=== PATIENT | female | born 1950 | race American Indian/Alaskan Native ===

== ENCOUNTER 2016-06-04 05:57 | Day surgery (SDC) | payer MEDICARE ==
[2016-06-04] MEDS ORDERED: FLAGYL 500 MG/100 ML 500 MG/100 ML BAG IV NR (06:00)
[2016-06-04] MEDS ORDERED: NACL BACTERIOSTATIC INFILTRATI ONE (06:46)
[2016-06-04] MEDS ORDERED: NACL 0.9% 1000 ML 1,000 ML IV SCH (07:00)
[2016-06-04] MEDS ORDERED: PEPCID PO NR (07:00)
[2016-06-04] MEDS ORDERED: VERSED IV NR (07:00)
[2016-06-04] MEDS ORDERED: SUBLIMAZE ONE (07:07)
[2016-06-04] MEDS ORDERED: DIPRIVAN 10 MG/ML IV ONE (07:07)
--- NOTE | 2016-06-04 07:18 | Anesthesia Day of Surgery ---
Anesthesia Day of Surgery - Day of Surgery Patient Examined: Yes Patient H&P Reviewed: Yes Patient is NPO: Yes Beta Blockers: Yes
--- NOTE | 2016-06-04 07:18 | Anesthesia Consultation ---
Anesthesia Consult and Med Hx Date of service: 06/04/16 - Airway Anesthetic Teeth Evaluation: Poor ROM Head & Neck: Adequate Mental/Hyoid Distance: Adequate Mallampati Class: Class II Intubation Access Assessment: Probably Good - Pulmonary Exam CTA: Yes - Cardiac Exam Cardiac Exam: RRR - Pre-Operative Health Status ASA Pre-Surgery Classification: ASA3 Proposed Anesthetic Plan: General - Pulmonary Hx Smoking: Yes Hx Asthma: No Hx Sleep Apnea: Yes (not on CPAP) - Cardiovascular System Hx Hypertension: Yes Hx Coronary Artery Disease: Yes (EF 55%) Hx Cardia Arrhythmia: Yes Hx Pacemaker: Yes - Central Nervous System Hx Seizures: No CVA: No Hx Psychiatric Problems: Yes (DEPRESSION) - Gastrointestinal Hx Gastroesophageal Reflux Disease: Yes (CONTROLLED WITH MEDS) - Endocrine Hx Renal Disease: Yes (CKD) Hx Insulin Dependent Diabetes: Yes (Takes insulin to match BG. Last dose 1 month ago, BG 118 today.) Hx Thyroid Disease: No - Hematic Hx Anemia: Yes - Other Systems Hx Alcohol Use: No Hx Substance Use: No Hx Cancer: No Hx Obesity: Yes (s/p gastric bypass 2003; current BMI= 37)
[2016-06-04] MEDS ORDERED: MORPHINE ONE ×3 (07:19→09:24)
[2016-06-04] MEDS ORDERED: LOPRESSOR PO NR (07:20)
[2016-06-04] MEDS ORDERED: PERCOCET 5/325 PO PRN (07:22)
[2016-06-04] MEDS ORDERED: WATER FOR IRRIG STERILE IR ONE ×3 (07:31→07:32)
[2016-06-04] MEDS ORDERED: OMNIPAQUE (300 MG) IV ONE (07:32)
[2016-06-04 07:48] LABS: Hematocrit 24.5 % (30.3-42.9); Hemoglobin 7.3 gm/dl (10.1-14.3)
[2016-06-04] MEDS ORDERED: NACL 0.9% 100 ML ONE (08:34)
[2016-06-04] MEDS ORDERED: NEO SYNEPHRINE ONE (08:34)
[2016-06-04] MEDS ORDERED: DECADRON ONE (08:47)
[2016-06-04] MEDS ORDERED: ZOFRAN ONE (08:47)
[2016-06-04] MEDS ORDERED: NACL P/F VIAL (10 ML) 10 ML ONE (08:56)
[2016-06-04] MEDS ORDERED: XYLOCAINE MPF 2% ONE ×2 (08:56)
--- NOTE | 2016-06-04 09:28 | Short Stay Summary ---
Short Stay Documentation Date of service: 06/04/16 - History H&P: obtained from office - Allergies and Medications Current Medications: Allergies Sulfa (Sulfonamide Antibiotics) Allergy (Verified 08/16/15 09:14) Hives hydromorphone HCl [From Dilaudid] Adverse Reaction (Verified 02/13/16 09:47) Unknown Home Medications Medication Instructions Recorded Confirmed Last Taken Type Atorvastatin (Nf) [Lipitor (Nf)] 20 mg PO DAILY 04/08/13 06/04/16 06/03/16 History Cinacalcet [Sensipar] 30 mg PO DAILY 04/08/13 06/04/16 06/03/16 History Insulin Aspart [NovoLOG 100 1 - 100 units SQ AC PRN 04/08/13 06/01/16 1 Month Ago History UNITS/ML VIAL] Multivitamin [Multi-Vitamin Daily] 1 each PO DAILY 04/08/13 06/04/16 1 Year Ago History Cyclobenzaprine HCl [Flexeril 5 MG 5 mg PO DAILY 02/02/15 06/04/16 1 Month Ago History TAB] ALPRAZolam [Xanax TAB] 1 mg PO DAILY tablet 08/22/15 06/04/16 06/02/16 Rx HYDROcodone/APAP 5-325 [[place] 1 each PO Q6HR PRN #60 tablet 08/22/15 06/01/16 22:00 Rx 5-325 mg TAB] Nadolol [Corgard] 40 mg PO DAILY tablet 08/22/15 06/04/16 06/03/16 Rx Pantoprazole [Protonix TAB] 40 mg PO DAILY tablet 08/22/15 06/04/16 06/03/16 Rx amLODIPine [Norvasc] 5 mg PO DAILY tablet 08/22/15 06/01/16 12/06/15 Rx Cefuroxime [Ceftin] 250 mg PO Q12H 06/01/16 06/04/16 06/03/16 History Clopidogrel Bisulfate [Plavix] 75 mg PO DAILY 06/01/16 06/01/16 05/29/16 History HYDROcodone/APAP 10-325 [[place] 1 each PO Q6HR PRN 06/01/16 06/04/16 06/02/16 History 10/325] Mirabegron [Myrbetriq] 25 mg PO QDAY 06/01/16 06/04/16 06/03/16 History Nitrofurantoin Macrocrystal 25 mg PO DAILY 06/01/16 06/04/16 06/03/16 History [Nitrofurantoin] Furosemide [Lasix] 20 mg PO QDAY 06/04/16 06/04/16 2 Months Ago History Insulin Detemir [Levemir] 10 units SQ PRN PRN 06/04/16 06/04/16 1 Week Ago History Sucralfate [Carafate] 1 gm PO BID 06/04/16 06/04/16 06/03/16 History Urocit-K 15 10 meq PO BID 06/04/16 06/04/16 06/03/16 History Active Medications Famotidine (Pepcid) 20 mg PO PREOP NR Stop: 06/04/16 23:59 Last Admin: 06/04/16 07:22 Dose: 20 mg Metronidazole (Flagyl 500 Mg/100 Ml) 500 mg in 100 mls @ 0 mls/hr IV PREOP NR PRN Reason: Protocol Stop: 06/04/16 23:59 Sodium Chloride (Nacl 0.9% 1000 Ml) 1,000 mls @ 100 mls/hr IV DIRECT MARVIN Last Admin: 06/04/16 07:30 Dose: 100 mls/hr Metoprolol Tartrate (Lopressor) 25 mg PO ONCE NR Stop: 06/04/16 23:59 Last Admin: 06/04/16 07:40 Dose: 25 mg Midazolam HCl (Versed) 2 mg IV PREOP NR Stop: 06/04/16 23:59 Last Admin: 06/04/16 07:57 Dose: 2 mg Morphine Sulfate (Morphine) 2 mg IV Q10MIN PRN PRN Reason: Pain, Moderate (4-6) Stop: 06/04/16 16:00 Oxycodone/Acetaminophen (Percocet 5/325) 1 tab PO ONCE PRN PRN Reason: Pain, Moderate (4-6) Stop: 06/04/16 16:00 - Brief post op/procedure progress note Date of procedure: 06/04/16 Pre-op diagnosis: bilat hydro, bilat stones (on plavix) Procedure: cysto, bilat stent exchange(6x24F), rt ureteroscopy Anesthesia: GETA Surgeon: SUDHA QUINTERO Pathology: none Condition: stable - Hospital course Hospital course: norco, doxycycline, post op info on chart - Disposition Condition at discharge: Stable Disposition: DISCHARGED TO HOME OR SELFCARE Short Stay Discharge Plan Follow up with: NAYELI CORDERO MD [Primary Care Provider] - 7 Days
[2016-06-04] MEDS: MORPHINE IV PRN ×3 (09:38→10:10)
[2016-06-04] MEDS ORDERED: TORADOL IV PRN (10:31)
--- NOTE | 2016-06-04 10:39 | Post Anesthesia Evaluation ---
- Post Anesthesia Evaluation Patient Participated: Yes Airway Patent: Yes Stable Respiratory Function: Yes Nausea/Vomiting: No Temp > 96.8F: Yes Pain Manageable: Yes Adequeate Hydration: Yes Anesthesia Complications: No
[2016-06-04] MEDS ORDERED: NORMODYNE IV PRN ×2 (10:57→11:13)
[2016-06-04 12:03] VITALS: BP 136/65
--- NOTE | 2016-06-04 20:56 | Admit Criteria Form ---
Admission Criteria Documentation: AMBULATORY SURGERY EXCEPTION CRITERIA Ambulatory Surgery Exception Criteria ( Place 'X' for any and all applicable criteria): Surgery or procedure performed on ambulatory basis may require inpatient stay for[A] ANY ONE of the following(1)(2)(3)(4)(5)(6)(7)(8)(9): [X] I. A preoperative situation, condition, or finding that warrants inpatient stay as indicated by ANY ONE of the following: [] a) Inpatient care needed because of severity of a disease or condition rather than the surgery (eg, severe cardiac or respiratory disease, severe infection) (15) (16 ) (17) (18) [] b) Emergent procedure (eg, angioplasty for acute ischemia)(19) [] c) Complex surgical approach or situation as indicated by ANY ONE of the following(3): [] i) Open approach needed instead of usual endoscopic, transcatheter, or other less invasive procedure [] ii) Difficult approach because of previous operation [] iii) Airway monitoring required after open neck procedures(20)(21) [] iv) Large mass requiring unusually extensive dissection [] v) Additional complicating feature requiring inpatient care (eg, drain management)(22(23): [X] d) Major surgery in a pt with high anesthetic risk as indicated by ANY ONE of the following (2)(3)(5)(7)(8): [X] i) ASA risk class III or higher (severe systemic disease impairing function) [D] [] ii) Advanced age (eg, older than 85 years)(14)(24) [] iii) Symptomatic heart failure(25) [] iv) Symptomatic asthma or COPD(8)(21) [] v) Morbid obesity with hemodynamic or respiratory problems(20)( 21)(26)(27) [] vi) Obstructive sleep apnea(20)(21) [] vii) Former premature infants who are younger than 60 weeks [] viii) High risk for severe postoperative abnormalities (eg, severe postoperative hypocalcemia after parathyroidectomy for severe hyperparathyroidism)(27)( 28) [] ix) Unstable angina(25) [] e) Drug-related risk requiring inpatient stay as indicated by ANY ONE of the following(5)(10)(14)(32)(33) [] i) Procedure requires discontinuing drugs or other therapy (eg , antiarrhythmic medication, antiseizure medication), which necessitates inpatient observation or treatment.(18)(31) [] ii) Major surgery and high risk drug use as indicated by ANY ONE of the following: [] 1) Active abuse of cocaine or similar drug [] 2) Monoamine oxidase inhibitor use [] 3) Other drug identified as posing risk [] f) Inadequate outpatient care situation as indicated by ANY ONE of the following(5)(10)(14)(32)(33) [] i) Patient lives remote from medical facility and procedure has urgent complication potential, and temporary nearby residence cannot be arranged [] ii) Patient will have postprocedure incapacitation and inadequate assistance at home, or alternative level of care cannot be arranged. [] iii) Patient will have long general anesthesia or procedure side effect resolution time, and competent person to stay with patient on first postoperative night at home or alternative level of care cannot be arranged. []iv) Other inadequate outpatient situation that cannot be handled by other means [] II. A perioperative event, condition, or finding that warrants inpatient stay as indicated by ANY ONE of the following (1)(2)(3): [] a) Inadequate physiologic recovery: cardiovascular, respiratory, or hemodynamic status not normal or near preoperative baseline(18) [] b) Hemodynamic instability [] c) Patient not alert with near normal or baseline mental status [] d) Temperature not normal or as expected and not appropriate for outpatient treatment of condition [] e) Ambulatory or appropriate activity level status not yet achieved post procedure [E](34)(35)(36) [] f) Operative site not appropriate (eg, unexpected or excessive drainage or bleeding) [] g) Postoperative effects not resolved or adequately managed (eg, significant pain or vomiting not appropriate for outpatient or next level of care)(10)(12) [] h) Complicating features requiring inpatient care as indicated by ANY ONE of the following(37): [] i) Severe complications of procedure (eg, bowel injury, airway compromise, vascular injury,severe hemorrhage) [] ii) Extensive (eg, dissection far beyond usual scope of procedure ) or prolonged (eg, 120 minutes beyond usual) surgery needed requiring inpatient postoperative care [] iii) Conversion to an open or complex procedure that requires inpatient care (eg, open vs laparoscopic cholecystectomy, abdominal vs vaginal hysterectomy)(38) [] iv) Comorbid condition or test result identified during or post procedure that requires inpatient care (7) [] v) Malignant hyperthermia(30) [] vi) Other complicating feature requiring inpatient care(22)(23) Inpatient stay may be needed until ALL of the following are present (1)(2)(3)(4) (5)(6)(10)(14)(33)(40): []a) Physiologic recovery: cardiovascular, respiratory, and hemodynamic status normal or near preoperative baseline []b) Hemodynamic stability []c) Patient alert, with near normal or baseline mental status []d) Temperature appropriate: patient afebrile or temperature appropriate for outpt treatment of condition []e) Activity level appropriate: ambulatory or appropriate activity level post procedure []f) Operative site appropriate as indicated by ALL of the following: []i) Site dry or with expected drainage []ii) Any blood noted is as expected for procedure. []g) Postoperative effects resolved or managed as indicated by ALL of the following: []i) Pain management appropriate for outpatient (or next level of) care(10) []ii) Minimal nausea and vomiting: if present, successfully treated with oral medication(12) []iii) Headache, dizziness, or drowsiness (if present) are mild. []h) Voiding status acceptable as indicated by ANY ONE of the following: []i) Voiding spontaneously []ii) No voiding but instructions given for follow-up in 6 to 8 hours []iii) Urinary catheter in place, and instructions given for follow-up []i) Complicating features requiring inpatient care manageable at a lower level of care(37) []j) Comorbid conditions manageable at a lower level of care(37) The original [employer] content created by [employer] has been revised. The portions of the content which have been revised are identified through the use of italic text or in bold, and [facility] [employer] has neither reviewed nor approved the modified material. All other unmodified content is copyright [employer]. Please see references footnoted in the original [employer] edition 2016 Admission Criteria Met: Yes
--- NOTE | 2016-06-04 22:54 | Operative Report ---
PREOPERATIVE DIAGNOSES: Bilateral hydronephrosis, bilateral kidney stones. POSTOPERATIVE DIAGNOSES: Bilateral hydronephrosis, bilateral kidney stones. SECONDARY DIAGNOSES: Increased body mass index, status post gastric bypass in 2003; diabetes; heart disease, on anticoagulant therapy. PROCEDURE: Cystoscopy, bilateral stent exchange (left side complicated), right ureteroscopy, double-J stent placement bilaterally (6 [place] 24 cm with a short internal string). SURGEON: Shalom Oneill M.D. ANESTHESIA: General. ANESTHESIOLOGIST: Tawanda Magallanes MD ESTIMATED BLOOD LOSS: Minimal. FLUIDS: Crystalloid. COMPLICATIONS: No complications. INDICATION: This 65-year-old female known to our service for several years with long history of kidney stones due to a gastric bypass surgery. She has been on Urocit-K. She continues to have stones and infections. We are trying to minimize infections at this point by leaving indwelling stents and changing them intermittently as well as removing stones as needed. She presents now for stent exchange and revaluation. DESCRIPTION OF PROCEDURE: The patient was taken to the operative suite, placed in a supine position. After adequate general anesthesia, placed in a dorsal lithotomy position, prepped and draped in a sterile fashion. Pancystourethroscopy was performed with a 22 [place] Storz cystoscope. No bladder pathology. Bilateral stents could be appreciated from the ureteral orifice, appeared to have calcifications in the right ureter, therefore it was targeted for further evaluation. Attempt to remove the left stent for exchange was difficult. It was difficult to pass a 0.035 Glidewire after multiple attempts and using a pusher for assistance, therefore, I used a 0.025 Glidewire. I was able to exchange, insert the wire under fluoroscopic guidance. Multiple attempts to insert the 0.035 alongside the stent and through the stent were unsuccessful. A 0.025 wire was placed in the collecting system and a 6-[place] 24 cm double-J stent with a short internal string was inserted. Adequate positioning was confirmed under fluoroscopy. Next, attention was taken to the right side. It was easier to place the wire on the side, removed the stent due to possible calcification. Ureteroscopy up to the renal pelvis was performed. There was some small debris that could be appreciated that was washed out. The patient started to have some bleeding from the left ureter as well as the right ureter. Therefore, at this point, I just removed the debris, put up a 6-[place] 24 double-J stent, observed for a few minutes, did not appear to be very active and at that point, we completed the procedure. Her bladder was drained. She was extubated and taken to recovery room. She will go home on [place], doxycycline. This procedure was done under anticoagulant therapy, and therefore a more aggressive approach was not taken. PLAN: We will further evaluate the left ureter with possible ureteroscopy at the next setting. JOB# [id number] [facility]IL[facility]
--- NOTE | 2016-06-05 09:03 | XRay Report ---
AP ABDOMEN: HISTORY: Calculus of kidney. FINDINGS: Multiple AP fluoroscopic images of the abdomen were obtained during bilateral ureteral stent exchange. There is no obvious nephrolithiasis on this limited exam. The bowel gas pattern is normal. Previous ventral wall hernia repair changes are noted. The bilateral ureteral stents appear in good position on the final image. IMPRESSION: Bilateral ureteral stent exchange. No acute process in the abdomen.
== END 2016-06-04 12:30 | disposition home or self-care (01) ==
LOC: OR 05:57
PROVIDERS: ATTEND Urology
DX: N13.2 Hydronephrosis with renal and ureteral calculous obstruction (principal); E11.22 Type 2 diabetes mellitus with diabetic chronic kidney disease; I12.9 Hypertensive chronic kidney disease with stage 1 through stage 4 chronic kidney disease, or unspecified chronic kidney disease; N18.9 Chronic kidney disease, unspecified; F32.9 Major depressive disorder, single episode, unspecified; I25.10 Atherosclerotic heart disease of native coronary artery without angina pectoris; K21.9 Gastro-esophageal reflux disease without esophagitis; D64.9 Anemia, unspecified; E66.9 Obesity, unspecified; Z68.37 Body mass index [BMI] 37.0-37.9, adult; Z79.4 Long term (current) use of insulin; Z87.891 Personal history of nicotine dependence; Z95.0 Presence of cardiac pacemaker; Z98.84 Bariatric surgery status; Z79.01 Long term (current) use of anticoagulants
CPT/HCPCS: 36415; 52332; 74000; 82962; 85014; 85018; A4217; J1100; J1885; J2250; J2270; J2370; J2405; J2704; J7030; C1758; C1769; C2617; J3010

== ENCOUNTER 2016-10-10 11:15 | Day surgery (SDC) | payer MEDICARE ==
[~2016-10-10 11:15] MED LIST: FLAGYL 500 MG/100 ML 500 MG/100 ML BAG IV SCH; PERCOCET 5/325 PO PRN; VERSED IV NR; ZOFRAN IV PRN
[2016-10-10] MEDS ORDERED: PEPCID PO NR (12:00)
[2016-10-10] MEDS ORDERED: NACL 0.9% 1000 ML 1,000 ML IV SCH (12:00)
--- NOTE | 2016-10-10 12:13 | Anesthesia Day of Surgery ---
Anesthesia Day of Surgery - Day of Surgery Patient Examined: Yes Patient H&P Reviewed: Yes Patient is NPO: Yes
--- NOTE | 2016-10-10 12:22 | Anesthesia Consultation ---
Anesthesia Consult and Med Hx Date of service: 10/10/16 - Airway Anesthetic Teeth Evaluation: Dentures ROM Head & Neck: Adequate Mental/Hyoid Distance: Adequate Mallampati Class: Class II Intubation Access Assessment: Probably Good - Pulmonary Exam CTA: Yes - Cardiac Exam Cardiac Exam: RRR - Pre-Operative Health Status ASA Pre-Surgery Classification: ASA3 Proposed Anesthetic Plan: General - Pulmonary Hx Smoking: Yes (QUIT 40 YRS AGO) Hx Sleep Apnea: Yes (NOT ON CPAP) - Cardiovascular System Hx Hypertension: Yes (ON BETA MONA, EF 55-60) Hx Cardia Arrhythmia: Yes (PAROXYSMAL AFIB) Hx Pacemaker: Yes - Central Nervous System Hx Seizures: No CVA: No Hx Psychiatric Problems: Yes (DEPRESSION) - Gastrointestinal Hx Gastroesophageal Reflux Disease: Yes (CONTROLLED WITH MEDS) - Endocrine Hx Renal Disease: Yes (CKD) Hx Insulin Dependent Diabetes: Yes Hx Thyroid Disease: No - Hematic Hx Anemia: Yes - Other Systems Hx Alcohol Use: No Hx Substance Use: No Hx Cancer: No Hx Obesity: Yes (s/p gastric bypass 2003) - Additional Comments Anesthesia Medical History Comments: RIGHT ARM DVT IN 2003, ON PLAVIX, OFF FOR 1 WEEK
[2016-10-10] MEDS ORDERED: XYLOCAINE MPF 2% ONE (12:43)
[2016-10-10] MEDS ORDERED: DIPRIVAN 10 MG/ML IV ONE (12:43)
[2016-10-10] MEDS ORDERED: SUBLIMAZE ONE (12:43)
[2016-10-10] MEDS ORDERED: DECADRON ONE (12:45)
[2016-10-10] MEDS ORDERED: ZOFRAN ONE (12:45)
[2016-10-10 13:00] LABS: Hematocrit 29.1 % (30.3-42.9)
[2016-10-10] MEDS ORDERED: WATER FOR IRRIG STERILE IR ONE (13:43)
[2016-10-10] MEDS ORDERED: OMNIPAQUE 300 MG/50 ML (CATH LAB) IV ONE (13:48)
--- NOTE | 2016-10-10 14:34 | Short Stay Summary ---
Short Stay Documentation Date of service: 10/10/16 - History H&P: obtained from office - Allergies and Medications Current Medications: Allergies Sulfa (Sulfonamide Antibiotics) Allergy (Verified 08/16/15 09:14) Hives hydromorphone HCl [From Dilaudid] Adverse Reaction (Verified 02/13/16 09:47) Unknown Home Medications Medication Instructions Recorded Confirmed Last Taken Type Atorvastatin (Nf) [Lipitor (Nf)] 20 mg PO DAILY 04/08/13 10/05/16 06/03/16 History Cinacalcet [Sensipar] 30 mg PO DAILY 04/08/13 10/05/16 06/03/16 History Insulin Aspart [NovoLOG 100 1 - 100 units SQ AC PRN 04/08/13 10/05/16 1 Month Ago History UNITS/ML VIAL] Multivitamin [Multi-Vitamin Daily] 1 each PO DAILY 04/08/13 10/05/16 1 Year Ago History Cyclobenzaprine HCl [Flexeril 5 MG 5 mg PO DAILY 02/02/15 10/05/16 1 Month Ago History TAB] ALPRAZolam [Xanax TAB] 1 mg PO DAILY tablet 08/22/15 10/05/16 06/02/16 Rx HYDROcodone/APAP 5-325 [[place] 1 each PO Q6HR PRN #60 tablet 08/22/15 10/05/16 22:00 Rx 5-325 mg TAB] Nadolol [Corgard] 40 mg PO DAILY tablet 08/22/15 10/05/16 06/03/16 Rx Pantoprazole [Protonix TAB] 40 mg PO DAILY tablet 08/22/15 10/05/16 06/03/16 Rx amLODIPine [Norvasc] 5 mg PO DAILY tablet 08/22/15 10/05/16 12/06/15 Rx Cefuroxime [Ceftin] 250 mg PO Q12H 06/01/16 10/05/16 06/03/16 History Clopidogrel Bisulfate [Plavix] 75 mg PO DAILY 06/01/16 10/05/16 08/14/16 History HYDROcodone/APAP 10-325 [[place] 1 each PO Q6HR PRN 06/01/16 10/05/16 06/02/16 History 10/325] Mirabegron [Myrbetriq] 25 mg PO QDAY 06/01/16 10/05/16 06/03/16 History Nitrofurantoin Macrocrystal 25 mg PO DAILY 06/01/16 10/05/16 06/03/16 History [Nitrofurantoin] Furosemide [Lasix] 20 mg PO QDAY 06/04/16 10/05/16 2 Months Ago History Insulin Detemir [Levemir] 10 units SQ PRN PRN 06/04/16 10/05/16 1 Week Ago History Sucralfate [Carafate] 1 gm PO BID 06/04/16 10/05/16 06/03/16 History Urocit-K 15 10 meq PO BID 06/04/16 10/05/16 06/03/16 History Active Medications Famotidine (Pepcid) 20 mg PO PREOP NR Stop: 10/10/16 23:00 Last Admin: 10/10/16 13:13 Dose: 20 mg Metronidazole (Flagyl 500 Mg/100 Ml) 500 mg in 100 mls @ 100 mls/hr IV PREOP MARVIN Stop: 10/10/16 23:59 Sodium Chloride (Nacl 0.9% 1000 Ml) 1,000 mls @ 75 mls/hr IV DIRECT MARVIN Last Admin: 10/10/16 13:13 Dose: 75 mls/hr Midazolam HCl (Versed) 2 mg IV PREOP NR Stop: 10/10/16 23:59 Last Admin: 10/10/16 13:15 Dose: 2 mg Morphine Sulfate (Morphine) 2 mg IV Q10MIN PRN PRN Reason: Pain, Moderate (4-6) Stop: 10/13/16 08:59 - Brief post op/procedure progress note Date of procedure: 10/10/16 Pre-op diagnosis: bilat hydro Post-op diagnosis: other (bilat ureteral stones) Procedure: cysto, rpg, bilat ureteroscopy, holium laser, basket , stone extraction (left), bilat stent exchant (6x24) Anesthesia: LUCEROA Surgeon: SUDHA QUINTERO Estimated blood loss: minimal Pathology: none Condition: stable - Hospital course Hospital course: PT HAS MACROBID & PERCOCET - Disposition Condition at discharge: Stable Disposition: DC-01 TO HOME OR SELFCARE Short Stay Discharge Plan Follow up with: NAYELI CORDERO MD [Primary Care Provider] - 7 Days
[2016-10-10] MEDS: MORPHINE IV PRN ×3 (14:54→15:57)
--- NOTE | 2016-10-10 15:02 | Post Anesthesia Evaluation ---
- Post Anesthesia Evaluation Patient Participated: Yes Airway Patent: Yes Stable Respiratory Function: Yes Nausea/Vomiting: No Temp > 96.8F: Yes Pain Manageable: Yes Adequeate Hydration: Yes Anesthesia Complications: No Block Receding Appropriately: Not Applicable Patient on Ventilator: No
[2016-10-10] MEDS ORDERED: MORPHINE IV PRN (15:54)
[2016-10-10] MEDS ORDERED: PERCOCET 5/325 PO ONE (16:39)
[2016-10-10 17:36] VITALS: BP 155/79
--- NOTE | 2016-10-10 19:33 | Operative Report ---
PREOPERATIVE DIAGNOSIS: Bilateral hydronephrosis, status post double-J stent placement. POSTOPERATIVE DIAGNOSES: 1. Bilateral hydronephrosis, status post double-J stent placement. 2. Bilateral ureteral stones. PROCEDURES: Cystoscopy, bilateral retrograde pyelograms, bilateral rigid ureteroscopy, holmium laser lithotripsy, left basket stone extraction, left double-J stent exchange bilaterally (6 [place] 24 cm). SURGEON: Shalom Oneill MD. ANESTHESIA: General. ANESTHESIOLOGIST: Lizeth Larkin MD. ESTIMATED BLOOD LOSS: Minimal. FLUIDS: Crystalloid. COMPLICATIONS: No complications. INDICATIONS: This patient is a 65-year-old female known to our service for urolithiasis. She has had chronic stones and strictures requiring chronic indwelling stents. She presents now for exchange. She has also had intestinal bypass in the remote past that puts her at risk for stones. She has been on Urocit-K therapy and has minimized her stone formation. However, anytime she gets an obstruction, she becomes septic. She received cardiac clearance from Dr. Levi Latham. DESCRIPTION OF PROCEDURE: The patient was taken to the operative suite, placed in a supine position. After adequate general anesthesia, placed in a dorsal lithotomy position, prepped and draped in a sterile fashion. Pancystourethroscopy was performed with 22 [place] Storz cystoscope. No tumors or stones. Both ureteral orifices in normal position with stents in place. [employer] film revealed stents in good position ____, a 0.035 Glidewire was placed. Stent was pulled out. Retrograde pyelogram revealed some filling defects in the distal to mid ureter. Ureteroscopy identified several stones on the left side. Using a 200 micron fiber holmium laser lithotripsy was performed starting at 4 gotti going up to 6 gotti. Adequate fragmentation could be appreciated. Basket stone extraction was used. The small fragments were extracted, but not large enough to be sent for analysis. A 6-[place] 24 cm double-J stent was placed on the left side. Similar procedure was performed on the right. Again when we shot the retrograde we saw some debris but ureteroscopy appeared to be clot and small fragments. A 6-[place] 24 cm double-J stent was exchanged. Bladder was drained. The patient was extubated and taken to recovery room. She has Macrobid and Percocet 10 mg. She will follow up in the office. JOB# [id number] [facility]
--- NOTE | 2016-10-12 11:38 | Fluoroscopy Report ---
FLUOROSCOPY RETROGRADE UROGRAPHY History: Ureteral stones, hydronephrosis. Findings: Fluoroscopy was provided by radiology during retrograde urography by urology. 13 fluoroscopic images were captured. The images demonstrate bilateral ureteral stent exchange. Bilateral ureteroscopy was also performed with stone basket extraction in both ureters. Please correlate with the procedural report by Dr. Oneill.
== END 2016-10-10 17:00 | disposition home or self-care (01) ==
LOC: OR 11:15
PROVIDERS: ATTEND Urology
DX: N13.2 Hydronephrosis with renal and ureteral calculous obstruction (principal); E11.22 Type 2 diabetes mellitus with diabetic chronic kidney disease; I12.9 Hypertensive chronic kidney disease with stage 1 through stage 4 chronic kidney disease, or unspecified chronic kidney disease; I48.0 Paroxysmal atrial fibrillation; N18.9 Chronic kidney disease, unspecified; D64.9 Anemia, unspecified; F32.9 Major depressive disorder, single episode, unspecified; K21.9 Gastro-esophageal reflux disease without esophagitis; E66.9 Obesity, unspecified; Z88.2 Allergy status to sulfonamides; Z88.8 Allergy status to other drugs, medicaments and biological substances; Z79.4 Long term (current) use of insulin; Z79.899 Other long term (current) drug therapy; Z87.891 Personal history of nicotine dependence; Z95.0 Presence of cardiac pacemaker; Z98.84 Bariatric surgery status; Z68.39 Body mass index [BMI] 39.0-39.9, adult
CPT/HCPCS: 36415; 52356; 74420; 82962; 84132; 85014; 85018; A4217; C1758; C1769; C2617; J2250; J2270; J2405; J2704; J3010; J7030; Q9967; J1100

== ENCOUNTER 2016-10-18 12:35 | Outpatient (CLI) | payer MEDICARE ==
[2016-10-18 13:22] LABS: Hematocrit 31.9 % (30.3-42.9); Hemoglobin 10.1 gm/dl (10.1-14.3); Mean Corpuscular HGB Conc 32 % (30-34); Mean Corpuscular Volume 77 fl (79-97); Platelet Count 214 K/mm3 (140-440); Red Blood Count 4.14 M/mm3 (3.65-5.03); White Blood Count 8.6 K/mm3 (4.5-11.0)
[2016-10-18 13:25] LABS: Mean Corpuscular Hemoglobin 24 pg (28-32); Red Cell Distribution Width 29.2 % (13.2-15.2)
[2016-10-18 13:37] LABS: Bilirubin,Urine NEG (Negative); Blood,Urine LG (Negative); Ketones,Urine NEG (Negative); Leukocyte Esterase,Urine LG (Negative); Nitrite,Urine NEG (Negative); Urobilinogen,Urine < 2.0 mg/dL (<2.0)
[2016-10-18 13:41] LABS: RBC,Urine > 182.0 /HPF (0.0-6.0)
[2016-10-18 13:57] LABS: BUN/Creatinine Ratio 6.66; Chloride 110.3 mmol/L (98-107); Potassium 4.4 mmol/L (3.6-5.0)
[2016-10-18 14:33] LABS: Acanthocytes Few; Anisocytosis 1+; Blastocytes % (Manual) 0 %; Elliptocytes 1+; Ovalocytes 1+; Polychromasia Few
[2016-10-18 14:34] LABS: Diff Status Complete; Microcytosis Few; Target Cells Few
== END 2016-10-18 12:36 | disposition home or self-care (01) ==
LOC: LAB 12:35
PROVIDERS: ATTEND Internal Medicine Nephrology
DX: I12.9 Hypertensive chronic kidney disease with stage 1 through stage 4 chronic kidney disease, or unspecified chronic kidney disease (principal); N18.3 Chronic kidney disease, stage 3 (moderate); E11.22 Type 2 diabetes mellitus with diabetic chronic kidney disease; D63.1 Anemia in chronic kidney disease; N25.81 Secondary hyperparathyroidism of renal origin; E87.2 Acidosis; E78.00 Pure hypercholesterolemia, unspecified; I25.10 Atherosclerotic heart disease of native coronary artery without angina pectoris; F32.9 Major depressive disorder, single episode, unspecified; Z87.891 Personal history of nicotine dependence
CPT/HCPCS: 36415; 80048; 81001; 82330; 82570; 83970; 84156; 85007; 85025

== ENCOUNTER 2017-03-14 10:42 | Day surgery (SDC) | payer MEDICARE ==
[~2017-03-14 10:42] MED LIST changes: -PERCOCET 5/325 PO PRN; -VERSED IV NR; -ZOFRAN IV PRN
[2017-03-14] MEDS ORDERED: NACL 0.9% 1000 ML 1,000 ML ONE (14:15)
--- NOTE | 2017-03-14 14:18 | Anesthesia Day of Surgery ---
Anesthesia Day of Surgery - Day of Surgery Patient Examined: Yes Patient H&P Reviewed: Yes Patient is NPO: Yes
--- NOTE | 2017-03-14 14:18 | Anesthesia Consultation ---
Anesthesia Consult and Med Hx Date of service: 03/14/17 - Airway Anesthetic Teeth Evaluation: Dentures ROM Head & Neck: Adequate Mental/Hyoid Distance: Adequate Mallampati Class: Class II Intubation Access Assessment: Good - Pulmonary Exam CTA: Yes - Cardiac Exam Cardiac Exam: RRR - Pre-Operative Health Status ASA Pre-Surgery Classification: ASA3 Proposed Anesthetic Plan: General - Pulmonary Hx Smoking: Yes (QUIT 40 YRS AGO) SOB: Yes (SOB) Hx Sleep Apnea: Yes (DX SLEEP APNEA , NO CPAP USE) - Cardiovascular System Hx Hypertension: Yes (ON BETA MONA) Hx Coronary Artery Disease: Yes (EF 55%) Hx Cardia Arrhythmia: Yes (PAROXYSMAL AFIB) Hx Pacemaker: Yes - Central Nervous System Hx Seizures: No CVA: No - Gastrointestinal Hx Gastroesophageal Reflux Disease: Yes (CONTROLLED WITH MEDS) - Endocrine Hx Renal Disease: Yes (CKD) Hx Insulin Dependent Diabetes: Yes Hx Thyroid Disease: No - Hematic Hx Anemia: Yes - Other Systems Hx Alcohol Use: No Hx Substance Use: No Hx Cancer: No Hx Obesity: Yes (s/p gastric bypass 2003)
[2017-03-14] MEDS ORDERED: NACL 0.9% 1000 ML 1,000 ML IV SCH (15:00)
[2017-03-14] MEDS ORDERED: VERSED IV NR (15:00)
[2017-03-14] MEDS ORDERED: PEPCID IV NR (15:00)
[2017-03-14] MEDS ORDERED: DIPRIVAN 10 MG/ML IV ONE (16:25)
[2017-03-14] MEDS ORDERED: XYLOCAINE MPF 2% ONE (16:25)
[2017-03-14] MEDS ORDERED: ZOFRAN ONE (16:25)
[2017-03-14] MEDS ORDERED: SUBLIMAZE ONE (16:52)
[2017-03-14] MEDS ORDERED: WATER FOR IRRIG STERILE IR ONE (16:58)
--- NOTE | 2017-03-14 17:17 | Short Stay Summary ---
Short Stay Documentation Date of service: 03/14/17 - History H&P: obtained from office - Allergies and Medications Current Medications: Allergies Sulfa (Sulfonamide Antibiotics) Allergy (Verified 08/16/15 09:14) Hives hydromorphone HCl [From Dilaudid] Adverse Reaction (Verified 03/11/17 17:30) HALLUCINATIONS Home Medications Medication Instructions Recorded Confirmed Last Taken Type Atorvastatin (Nf) [Lipitor (Nf)] 20 mg PO DAILY 04/08/13 03/14/17 03/13/17 History Cinacalcet [Sensipar] 30 mg PO DAILY 04/08/13 03/14/17 03/13/17 History Nadolol [Corgard] 40 mg PO DAILY tablet 08/22/15 03/14/17 03/14/17 09:00 Rx Mirabegron [Myrbetriq] 50 mg PO QDAY 06/01/16 03/14/17 03/13/17 History Insulin Detemir [Levemir Flextouch] 10 unit SQ QHS PRN 10/10/16 03/14/17 History Pantoprazole [Protonix] 40 mg PO QDAY 10/10/16 03/14/17 03/13/17 History Quetiapine Fumarate [Seroquel] 100 mg PO DAILY 10/10/16 03/14/17 03/13/17 History ALPRAZolam [Xanax TAB] 1 mg PO TID 03/11/17 03/14/17 03/13/17 History Clopidogrel Bisulfate [Plavix] 75 mg PO DAILY 03/11/17 03/14/17 02/28/17 History Nitrofurantoin Monohyd/M-Cryst 100 mg PO BID 03/11/17 03/14/17 03/13/17 History [Macrobid 100 mg Capsule] Potassium Citrate [Urocit K 5] 10 meq PO BID 03/11/17 03/14/17 03/12/17 History Active Medications Famotidine (Pepcid) 20 mg IV PREOP NR Stop: 03/14/17 23:59 Last Admin: 03/14/17 14:33 Dose: 20 mg Metronidazole (Flagyl 500 Mg/100 Ml) 500 mg in 100 mls @ 100 mls/hr IV PREOP MARVIN Stop: 03/14/17 23:59 Sodium Chloride (Nacl 0.9% 1000 Ml) 1,000 mls @ 42 mls/hr IV DIRECT MARVIN Last Admin: 03/14/17 14:33 Dose: 42 mls/hr Midazolam HCl (Versed) 2 mg IV PREOP NR Stop: 03/14/17 23:59 Last Admin: 03/14/17 14:33 Dose: 2 mg - Brief post op/procedure progress note Date of procedure: 03/14/17 Pre-op diagnosis: bilat hydro Post-op diagnosis: same Procedure: cysto, bilat stent exchange Anesthesia: GETA Surgeon: SUDHA QUINTERO Pathology: none Condition: stable - Hospital course Hospital course: cipro & percocet on chart - Disposition Condition at discharge: Stable Disposition: DC-01 TO HOME OR SELFCARE Short Stay Discharge Plan Follow up with: NAYELI CORDERO MD [Primary Care Provider] - 7 Days
--- NOTE | 2017-03-14 17:44 | Operative Report ---
PREOPERATIVE DIAGNOSES: Bilateral hydronephrosis, ureteral strictures. POSTOPERATIVE DIAGNOSES: Bilateral hydronephrosis, ureteral strictures. PROCEDURE PERFORMED: Cystoscopy, bilateral double-J stent exchange, bilateral retrograde pyelograms (6 [place] Citizen 24 cm with short internal string). SURGEON: Shalom Oneill MD ANESTHESIA: General. ESTIMATED BLOOD LOSS: Minimal. FLUIDS: Crystalloid. COMPLICATIONS: No complications. INDICATIONS: This patient is a 66-year-old female well known to our service with history of complicated UTIs, ureterolithiasis, and pyelohydronephrosis. She has had gastric bypass in the past that is complicating her development of ureteral stone. She has been on Urocit-K. At this point, we have managed her urinary tract stent exchange every 4-6 months. She presents now for exchange. She has had a 1 week or flank pain. DESCRIPTION OF PROCEDURE: The patient was taken to the operative suite, placed in a supine position. After adequate general anesthesia, placed in a dorsal lithotomy position, prepped and draped in a sterile fashion. Pancystourethroscopy was performed with 22 [place] Citizen Storz cystoscope. The stent could be appreciated in the ureters. No tumors were noted or stones in the bladder. A wire was placed on the right side. Stent was exchanged, 6-[place] Citizen 24 with a short internal string. Similar procedure was performed on the right and left. Retrograde pyelogram around the stent did not see any stones on the left side, there appeared to be some edema and it was difficult to inject to get a retrograde on the right and therefore I stopped. I did not want to injure the ureter. Bladder was drained. She was extubated and taken to recovery room. She will go home on Cipro and Percocet and follow up in the office. JOB# [id number] [facility]
[2017-03-14] MEDS ORDERED: NORCO 5/325 PO PRN (17:45)
[2017-03-14] MEDS ORDERED: PERCOCET 5/325 PO PRN (17:47)
[2017-03-14 22:59] VITALS: BP 142/79
--- NOTE | 2017-03-15 09:30 | Fluoroscopy Report ---
Retrograde pyelogram: Hydronephrosis. The initial images demonstrate bilateral internal nephroureteral stents. There are several calcifications in the right pelvis. There is an extensive abdominal mesh. A small amount of contrast is identified in the couple dilated calyces in the left kidney and the urinary bladder. No other contrast is identified. The stents were exchanged.
== END 2017-03-14 18:55 | disposition home or self-care (01) ==
LOC: OR 10:42
PROVIDERS: ATTEND Urology
DX: N13.1 Hydronephrosis with ureteral stricture, not elsewhere classified (principal); E11.22 Type 2 diabetes mellitus with diabetic chronic kidney disease; I12.9 Hypertensive chronic kidney disease with stage 1 through stage 4 chronic kidney disease, or unspecified chronic kidney disease; N18.9 Chronic kidney disease, unspecified; G47.33 Obstructive sleep apnea (adult) (pediatric); I48.91 Unspecified atrial fibrillation; E78.00 Pure hypercholesterolemia, unspecified; I25.10 Atherosclerotic heart disease of native coronary artery without angina pectoris; M19.90 Unspecified osteoarthritis, unspecified site; F41.9 Anxiety disorder, unspecified; F32.9 Major depressive disorder, single episode, unspecified; K21.9 Gastro-esophageal reflux disease without esophagitis; Z95.0 Presence of cardiac pacemaker; Z98.84 Bariatric surgery status; Z88.8 Allergy status to other drugs, medicaments and biological substances; Z79.899 Other long term (current) drug therapy; Z79.82 Long term (current) use of aspirin; Z79.4 Long term (current) use of insulin; Z86.718 Personal history of other venous thrombosis and embolism; Z87.891 Personal history of nicotine dependence; Z88.2 Allergy status to sulfonamides; Z98.890 Other specified postprocedural states
CPT/HCPCS: 52332; 74420; 82962; A4217; C1758; C1769; C2617; J2250; J2405; J2704; J3010; J7030; Q9967

== ENCOUNTER 2017-07-25 10:34 | Day surgery (SDC) | payer MEDICARE ==
--- NOTE | 2017-07-25 11:23 | Anesthesia Day of Surgery ---
Anesthesia Day of Surgery - Day of Surgery Patient Examined: Yes Patient H&P Reviewed: Yes Patient is NPO: Yes
--- NOTE | 2017-07-25 11:24 | Anesthesia Consultation ---
Anesthesia Consult and Med Hx Date of service: 07/25/17 - Airway ROM Head & Neck: Adequate Mental/Hyoid Distance: Adequate Mallampati Class: Class III Intubation Access Assessment: Possibly Difficult - Pulmonary Exam CTA: Yes - Cardiac Exam Cardiac Exam: RRR - Pre-Operative Health Status ASA Pre-Surgery Classification: ASA3 Proposed Anesthetic Plan: General - Pre-Anesthesia Comment Pre-Anesthesia Comments: GA with LMA ok - Pulmonary Hx Smoking: Yes (QUIT 40 YRS AGO) SOB: Yes (SOB) Hx Sleep Apnea: Yes (DX SLEEP APNEA , NO CPAP USE) - Cardiovascular System Hx Hypertension: Yes (ON BETA MONA) Hx Coronary Artery Disease: Yes (EF 55%) Hx Cardia Arrhythmia: Yes (PAROXYSMAL AFIB) Hx Pacemaker: Yes - Central Nervous System Hx Seizures: No CVA: No - Gastrointestinal Hx Gastroesophageal Reflux Disease: Yes (CONTROLLED WITH MEDS) - Endocrine Hx Renal Disease: Yes (CKD) Hx Insulin Dependent Diabetes: Yes Hx Thyroid Disease: No - Hematic Hx Anemia: Yes - Other Systems Hx Alcohol Use: No Hx Substance Use: No Hx Cancer: No Hx Obesity: Yes (s/p gastric bypass 2003)
[2017-07-25] MEDS ORDERED: DEMEROL IV PRN (11:25)
[2017-07-25] MEDS ORDERED: ZOFRAN IV PRN (11:25)
[2017-07-25] MEDS ORDERED: PERCOCET 5/325 PO PRN (11:25)
[2017-07-25] MEDS ORDERED: TYLENOL PO PRN (11:25)
[2017-07-25] MEDS ORDERED: PEPCID PO NR (12:00)
[2017-07-25] MEDS ORDERED: VERSED IV NR (12:00)
[2017-07-25] MEDS ORDERED: REGLAN IV NR (12:00)
[2017-07-25 12:17] LABS: Basophils % (Auto) 0.8 % (0.0-1.8); Eosinophils # (Auto) 0.2 K/mm3 (0.0-0.4); Eosinophils % (Auto) 3.1 % (0.0-4.3); Hematocrit 31.8 % (30.3-42.9); Hemoglobin 9.9 gm/dl (10.1-14.3); Lymphocytes # (Auto) 1.3 K/mm3 (1.2-5.4); Lymphocytes % (Auto) 23.7 % (13.4-35.0); Mean Corpuscular HGB Conc 31 % (30-34); Mean Corpuscular Hemoglobin 29 pg (28-32); Mean Corpuscular Volume 93 fl (79-97); Monocytes # (Auto) 0.7 K/mm3 (0.0-0.8); Monocytes % (Auto) 11.8 % (0.0-7.3); Platelet Count 324 K/mm3 (140-440); Red Blood Count 3.42 M/mm3 (3.65-5.03); Red Cell Distribution Width 17.8 % (13.2-15.2)
[2017-07-25 12:24] LABS: Calcium 9.6 mg/dL (8.4-10.2)
[2017-07-25] MEDS ORDERED: NACL 0.9% 1000 ML 1,000 ML IV SCH (12:30)
[2017-07-25] MEDS ORDERED: SUBLIMAZE ONE (12:59)
[2017-07-25] MEDS ORDERED: XYLOCAINE MPF 2% ONE (13:00)
[2017-07-25] MEDS ORDERED: DIPRIVAN 10 MG/ML IV ONE (13:00)
[2017-07-25] MEDS ORDERED: NEO SYNEPHRINE/NS Syringe(OR USE) IV ONE (13:26)
[2017-07-25] MEDS ORDERED: WATER FOR IRRIG STERILE IR ONE (13:39)
--- NOTE | 2017-07-25 13:58 | Short Stay Summary ---
Short Stay Documentation Date of service: 07/25/17 - History H&P: obtained from office - Allergies and Medications Current Medications: Allergies Sulfa (Sulfonamide Antibiotics) Allergy (Verified 08/16/15 09:14) Hives hydromorphone HCl [From Dilaudid] Adverse Reaction (Verified 03/11/17 17:30) HALLUCINATIONS Home Medications Medication Instructions Recorded Confirmed Last Taken Type Atorvastatin (Nf) [Lipitor (Nf)] 20 mg PO DAILY 04/08/13 07/25/17 07/24/17 21: 00 History Cinacalcet [Sensipar] 30 mg PO DAILY 04/08/13 07/25/17 03/13/17 History Nadolol [Corgard] 40 mg PO DAILY tablet 08/22/15 07/25/17 07/24/17 21:00 Rx Mirabegron [Myrbetriq] 50 mg PO QDAY 06/01/16 07/25/17 07/24/17 21:00 History Insulin Detemir [Levemir Flextouch] 10 unit SQ QHS PRN 10/10/16 07/25/17 History Pantoprazole [Protonix] 40 mg PO QDAY 10/10/16 07/25/17 07/24/17 09:00 History Quetiapine Fumarate [Seroquel] 100 mg PO DAILY 10/10/16 07/25/17 07/24/17 21:00 History ALPRAZolam [Xanax TAB] 1 mg PO TID 03/11/17 07/25/17 07/24/17 21:00 History Clopidogrel Bisulfate [Plavix] 75 mg PO DAILY 03/11/17 07/25/17 07/22/17 09:00 History Nitrofurantoin Monohyd/M-Cryst 100 mg PO BID 03/11/17 07/25/17 07/24/17 17:00 History [Macrobid 100 mg Capsule] Potassium Citrate [Urocit K 5] 10 meq PO BID 03/11/17 07/25/17 03/12/17 History Active Medications Acetaminophen (Tylenol) 650 mg PO ONCE PRN PRN Reason: Pain, Mild (1-3) Famotidine (Pepcid) 20 mg PO PREOP NR Stop: 07/25/17 23:00 Last Admin: 07/25/17 12:21 Dose: 20 mg Metronidazole (Flagyl 500 Mg/100 Ml) 500 mg in 100 mls @ 100 mls/hr IV PREOP MARVIN Sodium Chloride (Nacl 0.9% 1000 Ml) 1,000 mls @ 100 mls/hr IV DIRECT MARVIN Last Admin: 07/25/17 12:20 Dose: 100 mls/hr Meperidine HCl (Demerol) 25 mg IV ONCE PRN PRN Reason: Shivering Metoclopramide HCl (Reglan) 10 mg IV PREOP NR Stop: 07/25/17 23:00 Last Admin: 07/25/17 12:22 Dose: 10 mg Midazolam HCl (Versed) 2 mg IV PREOP NR Stop: 07/25/17 23:59 Last Admin: 07/25/17 12:28 Dose: 2 mg Ondansetron HCl (Zofran) 4 mg IV ONCE PRN PRN Reason: Nausea And Vomiting Oxycodone/Acetaminophen (Percocet 5/325) 1 tab PO ONCE PRN PRN Reason: Pain, Moderate (4-6) - Brief post op/procedure progress note Date of procedure: 07/25/17 Pre-op diagnosis: bilat hydro, UTI Post-op diagnosis: same Procedure: cysto, bilat stent exchange (clamped perc bilat) Anesthesia: GETA Surgeon: SUDHA QUINTERO Estimated blood loss: none Condition: stable - Hospital course Hospital course: osmarco & delgadoro on chart - Disposition Condition at discharge: Stable Disposition: DC-01 TO HOME OR SELFCARE Short Stay Discharge Plan Follow up with: NAYELI CORDERO MD [Primary Care Provider] - 7 Days
--- NOTE | 2017-07-25 14:28 | Operative Report ---
PREOPERATIVE DIAGNOSES: Bilateral hydronephrosis, recurrent urinary tract infections. POSTOPERATIVE DIAGNOSES: Bilateral hydronephrosis, recurrent urinary tract infections. PROCEDURE: Cystoscopy, bilateral double-J stent exchange, clamped nephrostomy tubes (6-[place] 24 cm). SURGEON: Shalom Oneill MD ANESTHESIA: General. ESTIMATED BLOOD LOSS: Minimal. FLUIDS: Crystalloid. COMPLICATIONS: No complications. INDICATIONS: This patient is a 66-year-old female known to our service with long history of recurrent urinary tract infections, stones and strictures. She has done better with stent exchange. She was recently in the hospital in [place] for recurrent infections as well . She presents today for exchange of the stents and possibly clamped nephrostomy tubes. DESCRIPTION OF PROCEDURE: The patient was taken to the operative suite, placed in the supine position. After adequate general anesthesia, placed in a dorsal lithotomy position, prepped and draped in a sterile fashion. Pancystourethroscopy was performed with a 22-[place] Storz cystoscope. Stents could be appreciated. Left stent was engaged, pulled out to the meatus. A 0.035 Glidewire was advanced up the left kidney. A 6-[place] 24 cm double-J stent was exchanged. Similar procedure was performed on the right without difficulty. Tubes were good position. They were clamped. The bladder was drained. She was extubated and taken to recovery room. She will go home on [place] and Cipro and follow up in the office. JOB# [id number] [facility]ILO
[2017-07-25] MEDS ORDERED: NORCO 5/325 PO ONE (15:17)
[2017-07-25 16:55] VITALS: BP 117/63
--- NOTE | 2017-07-25 22:29 | XRay Report ---
FINAL REPORT PROCEDURE: XR ABDOMEN 1V AP TECHNIQUE: Four fluoroscopic spot images of the abdomen and pelvis were obtained during the urological intervention and submitted for dictation. HISTORY: BILATERAL HYDRONEPHROSIS COMPARISON: No prior studies are available for comparison. FINDINGS: There are bilateral double-J ureteral stents and bilateral nephrostomy catheters. Intestinal gas pattern is nonspecific.. IMPRESSION: Fluoroscopic spot images demonstrating bilateral double-J ureteral stents and bilateral nephrostomy catheters.
== END 2017-07-25 10:35 | disposition home or self-care (01) ==
LOC: OR 10:34
PROVIDERS: ATTEND Urology
DX: N13.30 Unspecified hydronephrosis (principal); N39.0 Urinary tract infection, site not specified; Z46.6 Encounter for fitting and adjustment of urinary device; I25.10 Atherosclerotic heart disease of native coronary artery without angina pectoris; I48.0 Paroxysmal atrial fibrillation; I12.9 Hypertensive chronic kidney disease with stage 1 through stage 4 chronic kidney disease, or unspecified chronic kidney disease; E11.22 Type 2 diabetes mellitus with diabetic chronic kidney disease; N18.9 Chronic kidney disease, unspecified; E78.5 Hyperlipidemia, unspecified; K21.9 Gastro-esophageal reflux disease without esophagitis; G47.33 Obstructive sleep apnea (adult) (pediatric); Z95.0 Presence of cardiac pacemaker; Z98.51 Tubal ligation status; Z86.718 Personal history of other venous thrombosis and embolism; Z79.01 Long term (current) use of anticoagulants; Z90.710 Acquired absence of both cervix and uterus; Z87.891 Personal history of nicotine dependence; Z98.84 Bariatric surgery status; Z98.890 Other specified postprocedural states; Z91.040 Latex allergy status
CPT/HCPCS: 36415; 52332; 74018; 80048; 82962; 85025; A4217; C1758; C1769; J2250; J2370; J2405; J2704; J2765; J3010; J7030; Q9967; 74420

== ENCOUNTER 2017-08-11 21:17 | Emergency (ER) | payer MEDICARE ==
[2017-08-11] MEDS ORDERED: NACL 0.9% 500 ML 500 ML IV ONE (22:12)
[2017-08-11 22:49] LABS: Hematocrit 44.3 % (30.3-42.9); Hemoglobin 11.8 gm/dl (10.1-14.3); Red Blood Count 4.07 M/mm3 (3.65-5.03)
[2017-08-11 22:50] LABS: Lymphocytes % (Auto) 18.4 % (13.4-35.0); Mean Corpuscular HGB Conc 27 % (30-34); Mean Corpuscular Hemoglobin 29 pg (28-32); Mean Corpuscular Volume 108 fl (79-97); Monocytes % (Auto) 9.9 % (0.0-7.3); Platelet Count 169 K/mm3 (140-440); Red Cell Distribution Width 20.1 % (13.2-15.2)
[2017-08-11 22:51] LABS: Basophils % (Auto) 0.3 % (0.0-1.8); Eosinophils # (Auto) 0.3 K/mm3 (0.0-0.4); Lymphocytes # (Auto) 1.2 K/mm3 (1.2-5.4); Monocytes # (Auto) 0.6 K/mm3 (0.0-0.8)
[2017-08-11 22:59] LABS: Calcium 8.2 mg/dL (8.4-10.2)
[2017-08-12 00:01] LABS: Bacteria,Urine 1+ /HPF (Negative); Bilirubin,Urine NEG (Negative); Blood,Urine LG (Negative); Color,Urine Red (Yellow); Urobilinogen,Urine < 2.0 mg/dL (<2.0)
[2017-08-12 00:02] LABS: RBC,Urine > 182.0 /HPF (0.0-6.0); WBC,Urine > 182.0 /HPF (0.0-6.0)
--- NOTE | 2017-08-12 00:54 | Cat Scan Report ---
FINAL REPORT EXAM: CT ABDOMEN PELVIS WO CON HISTORY: abdominal pain (ROSITA NEPHROSTOMY TUBES 2 WKS AGO) TECHNIQUE: Routine axial imaging was obtained of the abdomen and pelvis without oral or IV contrast. Sagittal and coronal reconstructions were reviewed. Comparison is made to the study of 08/16/2015. FINDINGS: The lung bases are clear. Pleural fluid is not seen. The gallbladder has been removed. The liver, biliary tree, adrenal glands and spleen appear normal. The pancreas is mildly atrophic. Both kidneys reveal bilateral percutaneous nephrostomy catheters as well as bilateral double-J ureteral stents. The collecting systems are decompressed. There are multiple cortical cysts left kidney along with cortical thinning of both kidneys. The stents all appear in proper position. There calcification of the abdominal aorta. The bowel loops are normal in caliber and course. There are peritoneal sutures along the anterior abdominal wall with atrophy of the anterior abdominal musculature. There is no evidence of free fluid or adenopathy. In the pelvis the uterus has been removed. The bladder is decompressed. The skeletal structures reveal nonspecific sclerotic changes of the bones suggesting the possibility of renal osteodystrophy. IMPRESSION: Bilateral percutaneous nephrostomy catheters and internal double-J ureteral stents which appear in good position bilaterally. Collecting systems are decompressed. No evidence of perinephric hematoma bilaterally. Multiple cortical cysts in left kidney along with bilateral cortical atrophy in both kidneys. No acute process within the abdomen and pelvis otherwise. Sclerotic changes of the bones suggesting the possibility of renal osteodystrophy.
--- NOTE | 2017-08-12 01:02 | Emergency Department Report ---
ED Altered Mental Status HPI - General Chief Complaint: Altered Mental Status Stated Complaint: LOW BLOOD PRESSURE,SUGAR Time Seen by Provider: 08/11/17 22:33 Source: patient, family (The patient was fine last night but the daughter says the confusion started around 2 am and that the patient spent all day long in bed which is unusual for her. At the ER the patient is much better after IVF ( normal saline). She c/o only of lower back pain. Earlier she had abdominal pain. ) Mode of arrival: Ambulatory Limitations: No Limitations - Related Data Home Medications Medication Instructions Recorded Confirmed Last Taken Atorvastatin (Nf) [Lipitor (Nf)] 20 mg PO DAILY 04/08/13 07/25/17 07/24/17 21:00 Cinacalcet [Sensipar] 30 mg PO DAILY 04/08/13 07/25/17 03/13/17 Mirabegron [Myrbetriq] 50 mg PO QDAY 06/01/16 07/25/17 07/24/17 21:00 Insulin Detemir [Levemir Flextouch] 10 unit SQ QHS PRN 10/10/16 07/25/17 Pantoprazole [Protonix] 40 mg PO QDAY 10/10/16 07/25/17 07/24/17 09:00 Quetiapine Fumarate [Seroquel] 100 mg PO DAILY 10/10/16 07/25/17 07/24/17 21:00 ALPRAZolam [Xanax TAB] 1 mg PO TID 03/11/17 07/25/17 07/24/17 21:00 Clopidogrel Bisulfate [Plavix] 75 mg PO DAILY 03/11/17 07/25/17 07/22/17 09:00 Nitrofurantoin Monohyd/M-Cryst 100 mg PO BID 03/11/17 07/25/17 07/24/17 17:00 [Macrobid 100 mg Capsule] Potassium Citrate [Urocit K 5] 10 meq PO BID 03/11/17 07/25/17 03/12/17 Previous Rx's Medication Instructions Recorded Last Taken Type Nadolol [Corgard] 40 mg PO DAILY tablet 08/22/15 07/24/17 21:00 Rx Ciprofloxacin HCl [Cipro] 500 mg PO BID 10 Days tablet 08/12/17 Unknown Rx Allergies Allergy/AdvReac Type Severity Reaction Status Date / Time Sulfa (Sulfonamide Allergy Hives Verified 08/16/15 09:14 Antibiotics) acetaminophen [From Percocet] AdvReac Itching Verified 07/25/17 16:17 hydromorphone HCl AdvReac HALLUCINATI Verified 03/11/17 17:30 [From Dilaudid] ONS oxycodone [From Percocet] AdvReac Itching Verified 07/25/17 16:17 ED Review of Systems ROS: Stated complaint: LOW BLOOD PRESSURE,SUGAR Other details as noted in HPI Constitutional: denies: chills, fever Eyes: denies: eye pain, eye discharge, vision change ENT: denies: ear pain, throat pain Respiratory: denies: cough, shortness of breath, wheezing Cardiovascular: denies: chest pain, palpitations Endocrine: no symptoms reported Gastrointestinal: denies: abdominal pain, nausea, diarrhea Genitourinary: denies: urgency, dysuria, discharge Musculoskeletal: denies: back pain, joint swelling, arthralgia Skin: denies: rash, lesions Neurological: denies: headache, weakness, paresthesias Psychiatric: denies: anxiety, depression Hematological/Lymphatic: denies: easy bleeding, easy bruising ED Past Medical Hx - Past Medical History Hx Hypertension: Yes (ON BETA MONA) Hx Diabetes: Yes Hx Deep Vein Thrombosis: Yes (DVT RT ARM 2003) Hx GERD: Yes Hx Renal Disease: Yes (CKD//no HD) Hx Arthritis: Yes Hx Seizures: No Hx Kidney Stones: Yes Hx HIV: No Additional medical history: nephrostomy,kidney stones,kidney stents - Surgical History Hx Pacemaker: Yes Additional Surgical History: HYSTERECTOMY. HERNIA REPAIR - Social History Smoking Status: Never Smoker Substance Use Type: None - Medications Home Medications: Home Medications Medication Instructions Recorded Confirmed Last Taken Type Atorvastatin (Nf) [Lipitor (Nf)] 20 mg PO DAILY 04/08/13 07/25/17 07/24/17 21: 00 History Cinacalcet [Sensipar] 30 mg PO DAILY 04/08/13 07/25/17 03/13/17 History Nadolol [Corgard] 40 mg PO DAILY tablet 08/22/15 07/25/17 07/24/17 21:00 Rx Mirabegron [Myrbetriq] 50 mg PO QDAY 02/07/1307/25/17 07/24/17 21:00 History Insulin Detemir [Levemir Flextouch] 10 unit SQ QHS PRN 10/10/16 07/25/17 History Pantoprazole [Protonix] 40 mg PO QDAY 10/10/16 07/25/17 07/24/17 09:00 History Quetiapine Fumarate [Seroquel] 100 mg PO DAILY 10/10/16 07/25/17 07/24/17 21:00 History ALPRAZolam [Xanax TAB] 1 mg PO TID 03/11/17 07/25/17 07/24/17 21:00 History Clopidogrel Bisulfate [Plavix] 75 mg PO DAILY 03/11/17 07/25/17 07/22/17 09:00 History Nitrofurantoin Monohyd/M-Cryst 100 mg PO BID 03/11/17 07/25/17 07/24/17 17:00 History [Macrobid 100 mg Capsule] Potassium Citrate [Urocit K 5] 10 meq PO BID 03/11/17 07/25/17 03/12/17 History Ciprofloxacin HCl [Cipro] 500 mg PO BID 10 Days tablet 08/12/17 Unknown Rx ED Physical Exam - General Limitations: No Limitations General appearance: alert, in no apparent distress - Head Head exam: Present: atraumatic, normocephalic - Eye Eye exam: Present: normal appearance - ENT ENT exam: Present: mucous membranes moist - Neck Neck exam: Present: normal inspection - Respiratory Respiratory exam: Present: normal lung sounds bilaterally. Absent: respiratory distress - Cardiovascular Cardiovascular Exam: Present: regular rate, normal rhythm. Absent: systolic murmur, diastolic murmur, rubs, gallop - GI/Abdominal GI/Abdominal exam: Present: soft, tenderness (lower abdomen), normal bowel sounds - Extremities Exam Extremities exam: Present: normal inspection - Back Exam Back exam: Present: normal inspection - Neurological Exam Neurological exam: Present: alert, oriented X3 - Psychiatric Psychiatric exam: Present: normal affect, normal mood - Skin Skin exam: Present: warm, dry, intact, normal color. Absent: rash - Level of Consciousness 1a. Level of Consciousness: alert - LOC Questions 1b. LOC Questions: answers correctly - LOC Command 1c. LOC Commands: performs tasks correctly - Best Gaze 2. Best Gaze: normal - Visual 3. Visual: no visual loss - Facial Palsy 4. Facial Palsy: normal symmetrical movement - Motor Arm 5b. Motor Arm Right: no drift 5a. Motor Arm Left: no drift - Motor Leg 6a. Motor Leg Left: no drift 6b. Motor Leg Right: no movement - Limb Ataxia 7. Limb Ataxia: absent - Sensory 8. Sensory: normal - Best Language 9. Best Language: no aphasia - Dysarthria 10. Dysarthria: normal - Extinction and Inattention 11. Extinction/Inattention: no abnormality - Scoring Total Score: 4 Stroke Severity: Minor Stroke ED Course Vital Signs 08/11/17 08/11/17 21:25 22:45 Temperature 98.5 F Pulse Rate 90 71 Respiratory 20 18 Rate Blood Pressure 90/62 Blood Pressure 129/68 [Left] O2 Sat by Pulse 98 98 Oximetry - Lab Data Result diagrams: 08/11/17 22:15 08/11/17 22:15 Lab Results 08/11/17 08/11/17 08/11/17 Range/Units 21:53 22:15 22:15 WBC 6.3 (4.5-11.0) K/mm3 RBC 4.07 (3.65-5.03) M/mm3 Hgb 11.8 (10.1-14.3) gm/dl Hct 44.3 H (30.3-42.9) % MCV 108 H (79-97) fl MCH 29 (28-32) pg MCHC 27 L (30-34) % RDW 20.1 H (13.2-15.2) % Plt Count 169 (140-440) K/mm3 Lymph % (Auto) 18.4 (13.4-35.0) % Mcintosh % (Auto) 9.9 H (0.0-7.3) % Eos % (Auto) 5.0 H (0.0-4.3) % Baso % (Auto) 0.3 (0.0-1.8) % Lymph # 1.2 (1.2-5.4) K/mm3 Mcintosh # 0.6 (0.0-0.8) K/mm3 Eos # 0.3 (0.0-0.4) K/mm3 Baso # 0.0 (0.0-0.1) K/mm3 Add Manual Diff Complete Seg Neutrophils % 66.4 (40.0-70.0) % Seg Neutrophils # 4.2 (1.8-7.7) K/mm3 Sodium 133 L (137-145) mmol/L Potassium 4.7 (3.6-5.0) mmol/L Chloride 105.1 (98-107) mmol/L Carbon Dioxide 17 L (22-30) mmol/L Anion Gap 16 mmol/L BUN 20 H (7-17) mg/dL Creatinine 2.5 H (0.7-1.2) mg/dL Estimated GFR 23 ml/min BUN/Creatinine Ratio 8 % Glucose 92 (65-100) mg/dL POC Glucose 91 (70-105) Lactic Acid (0.7-2.0) mmol/L Calcium 8.2 L (8.4-10.2) mg/dL Total Bilirubin 0.30 (0.1-1.2) mg/dL AST 12 (5-40) units/L ALT 8 (7-56) units/L Alkaline Phosphatase 170 H (35-129) units/L Total Protein 6.3 (6.3-8.2) g/dL Albumin 3.0 L (3.9-5) g/dL Albumin/Globulin Ratio 0.9 % Urine Color (Yellow) Urine Turbidity (Clear) Urine pH (5.0-7.0) Ur Specific [place] (1.003-1.030) Urine Protein (Negative) mg/dL Urine Glucose (UA) (Negative) mg/dL Urine Ketones (Negative) mg/dL Urine Blood (Negative) Urine Nitrite (Negative) Urine Bilirubin (Negative) Urine Urobilinogen (<2.0) mg/dL Ur Leukocyte Esterase (Negative) Urine WBC (Auto) (0.0-6.0) /HPF Urine RBC (Auto) (0.0-6.0) /HPF Urine Bacteria (Auto) (Negative) /HPF 08/11/17 08/11/17 Range/Units 22:15 Unknown WBC (4.5-11.0) K/mm3 RBC (3.65-5.03) M/mm3 Hgb (10.1-14.3) gm/dl Hct (30.3-42.9) % MCV (79-97) fl MCH (28-32) pg MCHC (30-34) % RDW (13.2-15.2) % Plt Count (140-440) K/mm3 Lymph % (Auto) (13.4-35.0) % [place]osh % (Auto) (0.0-7.3) % Eos % (Auto) (0.0-4.3) % Baso % (Auto) (0.0-1.8) % Lymph # (1.2-5.4) K/mm3 [place]intosh # (0.0-0.8) K/mm3 Eos # (0.0-0.4) K/mm3 Baso # (0.0-0.1) K/mm3 Add Manual Diff Seg Neutrophils % (40.0-70.0) % Seg Neutrophils # (1.8-7.7) K/mm3 Sodium (137-145) mmol/L Potassium (3.6-5.0) mmol/L Chloride (98-107) mmol/L Carbon Dioxide (22-30) mmol/L Anion Gap mmol/L BUN (7-17) mg/dL Creatinine (0.7-1.2) mg/dL Estimated GFR ml/min BUN/Creatinine Ratio % Glucose (65-100) mg/dL POC Glucose (70-105) Lactic Acid 0.80 (0.7-2.0) mmol/L Calcium (8.4-10.2) mg/dL Total Bilirubin (0.1-1.2) mg/dL AST (5-40) units/L ALT (7-56) units/L Alkaline Phosphatase (35-129) units/L Total Protein (6.3-8.2) g/dL Albumin (3.9-5) g/dL Albumin/Globulin Ratio % Urine Color Red (Yellow) Urine Turbidity Clear (Clear) Urine pH 6.0 (5.0-7.0) Ur Specific [place] 1.011 (1.003-1.030) Urine Protein 100 mg/dl (Negative) mg/dL Urine Glucose (UA) Neg (Negative) mg/dL Urine Ketones Neg (Negative) mg/dL Urine Blood Lg (Negative) Urine Nitrite Neg (Negative) Urine Bilirubin Neg (Negative) Urine Urobilinogen < 2.0 (<2.0) mg/dL Ur Leukocyte Esterase Lg (Negative) Urine WBC (Auto) > 182.0 H (0.0-6.0) /HPF Urine RBC (Auto) > 182.0 (0.0-6.0) /HPF Urine Bacteria (Auto) 1+ (Negative) /HPF Critical care attestation.: If time is entered above; I have spent that time in minutes in the direct care of this critically ill patient, excluding procedure time. ED Disposition Clinical Impression: Mild dehydration UTI (urinary tract infection) Qualifiers: Urinary tract infection type: site unspecified Hematuria presence: without hematuria Qualified Code(s): N39.0 - Urinary tract infection, site not specified Disposition: TO HOME OR SELFCARE Is pt being admited?: No Does the pt Need Aspirin: No Condition: Stable Instructions: Urinary Tract Infection in Women (ED) Prescriptions: Ciprofloxacin HCl [Cipro] 500 mg PO BID 10 Days tablet Referrals: SARAHI JOEL MD [Primary Care Provider] - 3-5 Days Time of Disposition: 01:10
[2017-08-12] MEDS ORDERED: LEVAQUIN PO ONE (01:09)
[2017-08-12 01:52] VITALS: BP 145/80
== END 2017-08-12 01:52 | disposition home or self-care (01) ==
LOC: ED 21:17
DX: N39.0 Urinary tract infection, site not specified (principal); E86.0 Dehydration; I12.9 Hypertensive chronic kidney disease with stage 1 through stage 4 chronic kidney disease, or unspecified chronic kidney disease; E11.22 Type 2 diabetes mellitus with diabetic chronic kidney disease; N18.9 Chronic kidney disease, unspecified; K21.9 Gastro-esophageal reflux disease without esophagitis; R10.2 Pelvic and perineal pain; Z95.0 Presence of cardiac pacemaker; Z90.710 Acquired absence of both cervix and uterus; Z79.4 Long term (current) use of insulin; Z88.8 Allergy status to other drugs, medicaments and biological substances; Z88.2 Allergy status to sulfonamides; Z86.718 Personal history of other venous thrombosis and embolism
CPT/HCPCS: 36415; 74176; 80053; 81001; 82140; 82962; 85025; 87040; 87086; 99284; J7040

== ENCOUNTER 2017-10-17 08:50 | Day surgery (SDC) | payer MEDICARE ==
[2017-10-17] MEDS ORDERED: NACL BACTERIOSTATIC INFILTRATI ONE (09:28)
[2017-10-17] MEDS ORDERED: PEPCID IV NR (10:00)
[2017-10-17] MEDS ORDERED: NACL 0.9% 1000 ML 1,000 ML IV SCH (10:00)
[2017-10-17 10:02] LABS: Basophils % (Auto) 0.2 % (0.0-1.8); Eosinophils # (Auto) 0.2 K/mm3 (0.0-0.4); Eosinophils % (Auto) 1.1 % (0.0-4.3); Hematocrit 33.9 % (30.3-42.9); Hemoglobin 10.6 gm/dl (10.1-14.3); Lymphocytes # (Auto) 1.3 K/mm3 (1.2-5.4); Lymphocytes % (Auto) 7.1 % (13.4-35.0); Mean Corpuscular HGB Conc 31 % (30-34); Mean Corpuscular Hemoglobin 31 pg (28-32); Mean Corpuscular Volume 98 fl (79-97); Monocytes # (Auto) 1.5 K/mm3 (0.0-0.8); Monocytes % (Auto) 8.1 % (0.0-7.3); Platelet Count 194 K/mm3 (140-440); Red Blood Count 3.46 M/mm3 (3.65-5.03)
[2017-10-17 10:03] LABS: Red Cell Distribution Width 20.6 % (13.2-15.2)
[2017-10-17 10:13] LABS: Albumin 2.8 g/dL (3.9-5); Calcium 8.9 mg/dL (8.4-10.2)
[2017-10-17] MEDS ORDERED: ZOFRAN IV PRN (10:21)
[2017-10-17] MEDS ORDERED: SUBLIMAZE IV PRN (10:21)
--- NOTE | 2017-10-17 10:21 | Anesthesia Day of Surgery ---
Anesthesia Day of Surgery - Day of Surgery Patient Examined: Yes Patient H&P Reviewed: Yes Patient is NPO: Yes
--- NOTE | 2017-10-17 10:21 | Anesthesia Consultation ---
Anesthesia Consult and Med Hx Date of service: 10/17/17 - Airway Anesthetic Teeth Evaluation: Good ROM Head & Neck: Adequate Mental/Hyoid Distance: Adequate Mallampati Class: Class II Intubation Access Assessment: Probably Good - Pulmonary Exam CTA: Yes - Cardiac Exam Cardiac Exam: RRR - Pre-Operative Health Status ASA Pre-Surgery Classification: ASA3 Proposed Anesthetic Plan: General - Pulmonary Hx Smoking: Yes (QUIT 40 YRS AGO) SOB: Yes (SOB) Hx Sleep Apnea: Yes (DX SLEEP APNEA , NO CPAP USE) - Cardiovascular System Hx Hypertension: Yes (ON BETA MONA) Hx Coronary Artery Disease: Yes (EF 55%) Hx Cardia Arrhythmia: Yes (PAROXYSMAL AFIB) Hx Pacemaker: Yes - Central Nervous System Hx Seizures: No CVA: No - Gastrointestinal Hx Gastroesophageal Reflux Disease: Yes (CONTROLLED WITH MEDS) - Endocrine Hx Renal Disease: Yes (CKD) Hx Insulin Dependent Diabetes: Yes Hx Thyroid Disease: No - Hematic Hx Anemia: Yes - Other Systems Hx Alcohol Use: No Hx Substance Use: No Hx Cancer: No Hx Obesity: Yes (s/p gastric bypass 2003)
[2017-10-17] MEDS ORDERED: ZOFRAN ONE (10:59)
[2017-10-17] MEDS ORDERED: XYLOCAINE MPF 2% ONE (10:59)
[2017-10-17] MEDS ORDERED: DECADRON ONE (10:59)
[2017-10-17] MEDS ORDERED: DIPRIVAN 10 MG/ML IV ONE (10:59)
[2017-10-17] MEDS ORDERED: SUBLIMAZE ONE (11:01)
[2017-10-17] MEDS ORDERED: NEO SYNEPHRINE/NS Syringe(OR USE) IV ONE (11:35)
[2017-10-17] MEDS ORDERED: OMNIPAQUE (300 MG) IR ONE (11:41)
--- NOTE | 2017-10-17 12:27 | Short Stay Summary ---
Short Stay Documentation Date of service: 10/17/17 - History H&P: obtained from office - Allergies and Medications Current Medications: Allergies Sulfa (Sulfonamide Antibiotics) Allergy (Verified 08/16/15 09:14) Hives hydromorphone HCl [From Dilaudid] Adverse Reaction (Verified 03/11/17 17:30) HALLUCINATIONS oxycodone [From Percocet] Adverse Reaction (Verified 07/25/17 16:17) Itching BANDAIDS Adverse Reaction (Uncoded 10/17/17 10:58) SKIN IRRITATION Home Medications Medication Instructions Recorded Confirmed Last Taken Type Nadolol [Corgard] 40 mg PO DAILY tablet 08/22/15 10/17/17 10/16/17 23:59 Rx Mirabegron [Myrbetriq] 50 mg PO QDAY 06/01/16 10/17/17 10/16/17 History Insulin Detemir [Levemir Flextouch] 10 unit SQ QHS PRN 10/10/16 10/15/17 History Pantoprazole [Protonix] 40 mg PO QDAY 10/10/16 10/17/17 10/16/17 History Quetiapine Fumarate [Seroquel] 100 mg PO DAILY 10/10/16 10/17/17 10/15/17 History ALPRAZolam [Xanax TAB] 1 mg PO TID 03/11/17 10/17/17 10/16/17 History Clopidogrel Bisulfate [Plavix] 75 mg PO DAILY 03/11/17 10/17/17 10/10/17 History Potassium Citrate [Urocit K 5] 10 meq PO BID 03/11/17 10/17/17 10/16/17 History Ciprofloxacin HCl [Cipro] 500 mg PO BID 10 Days tablet 08/12/17 10/17/17 Rx Active Medications Fentanyl (Sublimaze) 50 mcg IV Q5MIN PRN PRN Reason: Pain , Severe (7-10) Stop: 10/17/17 15:00 Metronidazole (Flagyl 500 Mg/100 Ml) 500 mg in 100 mls @ 100 mls/hr IV PREOP MARVIN Stop: 10/17/17 23:59 Sodium Chloride (Nacl 0.9% 1000 Ml) 1,000 mls @ 75 mls/hr IV DIRECT MARVIN Last Admin: 10/17/17 10:23 Dose: 75 mls/hr - Brief post op/procedure progress note Date of procedure: 10/17/17 Pre-op diagnosis: bilat hydronephrosis Post-op diagnosis: same Procedure: cysto,rpg, bilat stent exchange - 6 x 24 (4mm rt distal stone) Anesthesia: GETA - Hospital course Hospital course: macrobid & norco on chart Short Stay Discharge Plan Follow up with: GARY KEYS MD [Primary Care Provider] - 7 Days
[2017-10-17 14:17] VITALS: BP 131/77
--- NOTE | 2017-10-18 10:59 | Fluoroscopy Report ---
Retrograde pyelogram: Initial images demonstrate bilateral nephroureteral stents. On the right side there are 2 calculi overlying the stent at the level of the lower sacrum. On the left side there is one or possibly a second adjacent calculus overlying the stent at the level of the iliac crest. Injection of contrast on the left obscures the stent as well as the calculi. No filling defects identified in the kidney. Injection of contrast on the right side does not completely overlie the calculi. The ureter is partially filled and there is no contrast in the intrarenal collecting system. According to the procedure note the stents were replaced bilaterally. Impressions: 1. The left ureteral calculi are obscured by contrast suggesting that they lie within the ureter. 2. The right calculi cannot be confirmed to be within the ureter.
--- NOTE | 2017-10-24 22:38 | Operative Report ---
PREOPERATIVE DIAGNOSES: Bilateral hydronephrosis, status post bilateral stent placement. POSTOPERATIVE DIAGNOSES: Bilateral hydronephrosis, status post bilateral stent placement. PROCEDURE PERFORMED: Cystoscopy, bilateral retrograde pyelogram, bilateral stent exchange (6-Divehi 24 cm) with a right distal 4 mm stone. SURGEON: Shalom Oneill MD. ANESTHESIA: General. ESTIMATED BLOOD LOSS: Minimal. FLUIDS: Crystalloid. COMPLICATIONS: No complications. INDICATIONS: This patient is a 66-year-old female with long history of kidney stones due to as a complication from her gastric bypass surgery several years ago. Presently has been managed with bilateral stent placement. She has also had recent nephrostomy tubes placed at another institution, they were removed recently and she presents now for stent exchange. Preoperative labs revealed a white count of 18,000. DESCRIPTION OF PROCEDURE: The patient was taken to the operative suite, placed in supine position. After adequate general anesthesia, placed in a dorsal lithotomy position, prepped and draped in a sterile fashion. Pancystourethroscopy was performed with 22-Divehi Storz cystoscope. No bladder pathology except for obvious stents noted. Left stent was engaged with a grasper, pulled out to the meatus. Retrograde pyelogram was obtained. No obvious stone on this side; however, she has strictures as well. 6-Divehi 24 cm stent was placed over a wire, short internal string was left indwelling right side. A stent was engaged pulled out to the meatus. Retrograde revealed an approximately 4 mm distal stone; however, due to a white count of 18,000, I elected to not pursue ureteroscopy. With the aid of a wire, 6-Divehi 24 cm double-J stent was exchanged as well. Fluoroscopy confirmed adequate position . Her bladder was drained. She was extubated and taken to recovery room. She will go home on [employer] and [employer]. JOB# [id number] [facility]
== END 2017-10-17 14:03 | disposition home or self-care (01) ==
LOC: OR 08:50
PROVIDERS: ATTEND Urology
DX: N13.2 Hydronephrosis with renal and ureteral calculous obstruction (principal); I12.0 Hypertensive chronic kidney disease with stage 5 chronic kidney disease or end stage renal disease; E11.22 Type 2 diabetes mellitus with diabetic chronic kidney disease; N18.6 End stage renal disease; G47.30 Sleep apnea, unspecified; I25.10 Atherosclerotic heart disease of native coronary artery without angina pectoris; I48.0 Paroxysmal atrial fibrillation; K21.9 Gastro-esophageal reflux disease without esophagitis; E66.9 Obesity, unspecified; Z68.39 Body mass index [BMI] 39.0-39.9, adult; Z95.0 Presence of cardiac pacemaker; Z88.2 Allergy status to sulfonamides; Z88.5 Allergy status to narcotic agent; Z88.8 Allergy status to other drugs, medicaments and biological substances; Z98.84 Bariatric surgery status
CPT/HCPCS: 36415; 52332; 74420; 80053; 82962; 85025; 88300; C1758; C1769; C2617; J2370; J2405; J2704; J3010; J7030; Q9967; 88302; J1100

== ENCOUNTER 2018-01-08 13:06 | Day surgery (SDC) | payer MEDICARE ==
--- NOTE | 2018-01-08 12:26 | Anesthesia Day of Surgery ---
Anesthesia Day of Surgery - Day of Surgery Patient Examined: Yes Patient H&P Reviewed: Yes Patient is NPO: Yes
--- NOTE | 2018-01-08 12:27 | Anesthesia Consultation ---
Anesthesia Consult and Med Hx Date of service: 01/08/18 - Airway Anesthetic Teeth Evaluation: Poor ROM Head & Neck: Adequate Mental/Hyoid Distance: Inadequate Mallampati Class: Class III Intubation Access Assessment: Possibly Difficult - Pulmonary Exam CTA: Yes - Cardiac Exam Cardiac Exam: RRR - Pre-Operative Health Status ASA Pre-Surgery Classification: ASA3 Proposed Anesthetic Plan: General (GA with LMA ok, GERD controlled given pepcid in preop) - Pulmonary Hx Smoking: Yes (STOPPED 1976) SOB: Yes (SOB) Hx Sleep Apnea: Yes (DX SLEEP APNEA , NO CPAP USE) - Cardiovascular System Hx Hypertension: Yes (X 7 YRS) Hx Coronary Artery Disease: Yes (EF 55%) Hx Cardia Arrhythmia: Yes (PAROXYSMAL AFIB) Hx Pacemaker: Yes - Central Nervous System Hx Seizures: No CVA: No - Gastrointestinal Hx Gastroesophageal Reflux Disease: Yes (CONTROLLED WITH MEDS) - Endocrine Hx Renal Disease: Yes (CKD) Hx Insulin Dependent Diabetes: Yes Hx Thyroid Disease: No - Hematic Hx Anemia: Yes - Other Systems Hx Cancer: No Hx Obesity: Yes (s/p gastric bypass 2003)
[~2018-01-08 13:06] MED LIST changes: +DILAUDID IV PRN; +DIPRIVAN 10 MG/ML IV ONE; +LACTATED RINGERS 1,000 ML IV SCH; +SUBLIMAZE ONE; +VERSED IV NR; +ZOFRAN IV PRN
[2018-01-08] MEDS ORDERED: XYLOCAINE MPF 2% ONE (13:48)
[2018-01-08] MEDS ORDERED: WATER FOR IRRIG STERILE IR ONE ×2 (13:49→13:51)
[2018-01-08] MEDS ORDERED: DECADRON ONE (14:13)
[2018-01-08] MEDS ORDERED: ZOFRAN ONE (14:13)
[2018-01-08] MEDS ORDERED: OMNIPAQUE 300 MG/50 ML (CATH LAB) IV ONE (14:30)
[2018-01-08] MEDS ORDERED: NEO SYNEPHRINE ONE (14:35)
--- NOTE | 2018-01-08 14:43 | Short Stay Summary ---
Short Stay Documentation Date of service: 01/08/18 - History H&P: obtained from office - Allergies and Medications Current Medications: Allergies Sulfa (Sulfonamide Antibiotics) Allergy (Verified 08/16/15 09:14) Hives hydromorphone HCl [From Dilaudid] Adverse Reaction (Verified 03/11/17 17:30) HALLUCINATIONS oxycodone [From Percocet] Adverse Reaction (Verified 07/25/17 16:17) Itching BANDAIDS Adverse Reaction (Uncoded 10/17/17 10:58) SKIN IRRITATION Home Medications Medication Instructions Recorded Confirmed Last Taken Type Nadolol [Corgard] 40 mg PO DAILY tablet 08/22/15 12/27/17 01/07/18 20:30 Rx Mirabegron [Myrbetriq] 50 mg PO QDAY 06/01/16 12/27/17 01/07/18 History Insulin Detemir [Levemir Flextouch] 1 unit SQ QHS PRN 10/10/16 01/08/18 History Pantoprazole [Protonix] 40 mg PO QDAY 10/10/16 12/27/17 01/07/18 History ALPRAZolam [Xanax TAB] 1 mg PO TID 03/11/17 12/27/17 01/07/18 History Clopidogrel Bisulfate [Plavix] 75 mg PO DAILY 03/11/17 01/08/18 01/01/18 History Potassium Citrate (Nf) [Urocit K 5] 10 meq PO BID 03/11/17 12/27/17 01/07/18 History AtorvaSTATin [Lipitor] 20 mg PO QHS 12/27/17 12/27/17 01/07/18 History Ferrous Sulfate [Iron] 325 mg PO DAILY 12/27/17 12/27/17 01/07/18 History HYDROcodone/ACETAMINOPHEN [[place] 1 each PO PRN PRN 12/27/17 12/27/17 01/07/18 History 10-325 Tablet] Ondansetron [Zofran TAB] 4 mg PO Q8HR PRN 12/27/17 12/27/17 01/07/18 History amLODIPine [Norvasc] 5 mg PO DAILY 12/27/17 12/27/17 01/07/18 History Active Medications Hydromorphone HCl (Dilaudid) 0.5 mg IV Q10MIN PRN PRN Reason: Pain , Severe (7-10) Stop: 01/08/18 20:00 Metronidazole (Flagyl 500 Mg/100 Ml) 500 mg in 100 mls @ 100 mls/hr IV PREOP MARVIN; Protocol Lactated Ringer's (Lactated Ringers) 1,000 mls @ 100 mls/hr IV DIRECT MARVIN Last Admin: 01/08/18 13:11 Dose: 100 mls/hr Midazolam HCl (Versed) 2 mg IV PREOP NR Stop: 01/08/18 23:59 Ondansetron HCl (Zofran) 4 mg IV ONCE PRN PRN Reason: Nausea And Vomiting Stop: 01/08/18 20:00 - Brief post op/procedure progress note Date of procedure: 01/08/18 Pre-op diagnosis: bilat hydronephrosis, stent stents Post-op diagnosis: other (left impacted ureteral stone) Procedure: cysto, left rpg, left ureteroscopy, laser, basket stone, bilat stent Anesthesia: GETA Surgeon: SUDHA QUINTERO Estimated blood loss: minimal Pathology: none Condition: stable - Hospital course Hospital course: macorbid, norco, give stone to pt (on chart) - Disposition Condition at discharge: Stable Disposition: DC-01 TO HOME OR SELFCARE Short Stay Discharge Plan Follow up with: GARY KEYS MD [Primary Care Provider] - 7 Days
[2018-01-08] MEDS ORDERED: SUBLIMAZE ONE (14:46)
--- NOTE | 2018-01-08 15:06 | Operative Report ---
PREOPERATIVE DIAGNOSES: Bilateral hydronephrosis, long history of urolithiasis, status post bilateral stent placement. POSTOPERATIVE DIAGNOSES: Bilateral hydronephrosis, long history of urolithiasis, status post bilateral stent placement, left impacted ureteral stone. PROCEDURE: Cystoscopy, left retrograde pyelogram, left ureteroscopy, holmium laser lithotripsy, basket stone extraction, bilateral double-J stent placement with a short internal string (6-Austrian 24 cm). SURGEON: Shalom Oneill MD ANESTHESIA: General. ESTIMATED BLOOD LOSS: Minimal. FLUIDS: Crystalloid. COMPLICATIONS: No complications. INDICATIONS: This patient is a 67-year-old female known to our service, history of gastric bypass years ago with urologic complications. She has had a long history of urolithiasis, placed on Urocit-K therapy. She has had strictures and multiple stones and we have been managing her with bilateral stent placement with removal of stones as they present. DESCRIPTION OF PROCEDURE: The patient was taken to the operative suite, placed in a supine position. After adequate general anesthesia, placed in a dorsal lithotomy position, prepped and draped in a sterile fashion. Pancystourethroscopy was performed with a 22-Austrian Storz cystoscope. No bladder pathology. Both ureteral orifices in normal position. 0.035 Glidewire was placed up the right collecting system. It was exchanged without difficulty, did not appear to have any stones. Left appeared to have a mid ureteral stone, on attempts to exchange placed a stent, could feel some obstruction of the stent. The wire was placed through the indwelling stent, backed up the stent. Rigid ureteroscopy, obvious stone could be impacted. Using 200 micron holmium laser fiber starting at 4 gotti lithotripsy was performed adequate fragmentation. Most of the stone went up to 8 gotti, better fragmentation. The fragments were extracted with a 3-Austrian Karolina basket. Ureteroscopy up to the renal pelvis was performed. A 6-Austrian 24 cm double-J stent with short internal string was placed. Retrograde did reveal a small amount of extravasation. Bladder was drained. She was extubated and taken to recovery room. She will go home on [employer] and [place]. JOB# [id number] [facility]
[2018-01-08] MEDS ORDERED: TORADOL IV PRN (15:20)
[2018-01-08] MEDS: SUBLIMAZE IV PRN ×2 (15:30→15:45)
[2018-01-08 19:58] VITALS: BP 113/75
--- NOTE | 2018-01-09 08:04 | Fluoroscopy Report ---
FLUOROSCOPY RETROGRADE UROGRAPHY: HISTORY: Left ureteral stones, hydronephrosis. FINDINGS: Fluoroscopy was provided by radiology during retrograde urography by the urologist. 6 fluoroscopic images were captured. The application processor film demonstrates bilateral ureteral stents in place. There appear to be at least 2 calcifications along the course of the left ureter and stent consistent with stones. Per the operative notes, left ureteroscopy was performed. A holmium laser was utilized. Stone basket extraction of the stones was performed. The bilateral ureteral stents were exchanged which are in good position on the final image. IMPRESSION: Left ureteral stone removal. Bilateral ureteral stent exchange.
== END 2018-01-08 17:25 | disposition home or self-care (01) ==
LOC: OR 13:06
PROVIDERS: ATTEND Urology
DX: N13.30 Unspecified hydronephrosis (principal); I12.9 Hypertensive chronic kidney disease with stage 1 through stage 4 chronic kidney disease, or unspecified chronic kidney disease; E11.22 Type 2 diabetes mellitus with diabetic chronic kidney disease; N18.9 Chronic kidney disease, unspecified; D64.9 Anemia, unspecified; K21.9 Gastro-esophageal reflux disease without esophagitis; I25.10 Atherosclerotic heart disease of native coronary artery without angina pectoris; E78.00 Pure hypercholesterolemia, unspecified; I48.91 Unspecified atrial fibrillation; F32.9 Major depressive disorder, single episode, unspecified; M19.90 Unspecified osteoarthritis, unspecified site; F41.9 Anxiety disorder, unspecified; E66.9 Obesity, unspecified; Z68.39 Body mass index [BMI] 39.0-39.9, adult; Z87.442 Personal history of urinary calculi; Z88.2 Allergy status to sulfonamides; Z88.8 Allergy status to other drugs, medicaments and biological substances; Z79.4 Long term (current) use of insulin; Z79.899 Other long term (current) drug therapy; Z79.01 Long term (current) use of anticoagulants; Z96.0 Presence of urogenital implants; Z98.51 Tubal ligation status; Z98.49 Cataract extraction status, unspecified eye; Z90.710 Acquired absence of both cervix and uterus; Z98.890 Other specified postprocedural states; Z87.891 Personal history of nicotine dependence
CPT/HCPCS: 52356; 74420; 82962; A4217; C1758; C1769; C2617; J1100; J1170; J1885; J2370; J2405; J2704; J3010; J7120; Q9967; J2250